=== PATIENT | male | born 1970 | race Hispanic/Latino ===

== ENCOUNTER → 2018-03-17 | Outpatient (CLI) | payer MEDICAID ==
[~2018-03-17] MED LIST: CEPH500B PO; LISI-613 PO; TYL3 PO
== END | disposition home or self-care (01) ==
LOC: RAH 10:14
PROVIDERS: ATTEND Urology
DX: N20.0 Calculus of kidney (principal); M47.815 Spondylosis without myelopathy or radiculopathy, thoracolumbar region
CPT/HCPCS: 74018; 76100

== ENCOUNTER 2018-03-19 08:29 | Day surgery (SDC) | payer MEDICAID ==
[2018-03-18 12:01] VITALS: BP 139/81
[2018-03-18 12:16] LABS: BASOPHILS % (AUTO) 0.5 % (0.0-5.0); EOSINOPHILS % (AUTO) 0.9 % (0.0-8.0); HEMATOCRIT 42.8 % (42-54); MEAN CORPUSCULAR HEMOGLOBIN 26.9 pg (27.0-33.0); MEAN CORPUSCULAR HGB CONC 32.6 g/dL (32.0-36.0); MEAN CORPUSCULAR VOLUME 82.5 fL (79-99); MONOCYTES % (AUTO) 8.6 % (3.0-13.0); PLATELET COUNT (AUTO) 474 K/uL (130-400); RED BLOOD CELL COUNT(AUTO) 5.19 MIL/uL (4.50-6.20); RED CELL DISTRIBUTION WIDTH 14.2 % (11.0-15.5); WHITE BLOOD COUNT (AUTO) 12.9 K/uL (4.8-10.8)
[2018-03-18 12:26] LABS: INR 0.97 (0.85-1.15); PROTHROMBIN TIME 10.2 SEC (9.6-11.6)
[2018-03-18 12:30] LABS: CREATININE 1.2 mg/dL (0.5-1.5); POTASSIUM 4.3 mmol/L (3.5-5.1)
--- NOTE | 2018-03-18 15:53 | NUR ---
ABNORMAL LABS CBC RESULTS FAXED OVER TO DR. DEL CASTILLO'S OFFICE. WAITING [employer] DEVELOPER BACK FOR ORDERS.
--- NOTE | 2018-03-18 16:45 | NUR ---
UPDATED H&P CALLED DR. DEL CASTILLO'S OFFICE FOR UPDATED H&P. STAFF STATED SHE WILL FAX NOW. CHANTALE ROLLINS NURSE TIRE SERVICE SUPERVISOR ALSO CALLED OFFICE FOR H&P.
--- NOTE | 2018-03-18 16:51 | NUR ---
ABNORMAL LABS CALL BACK FROM DR. DEL CASTILLO'S OFFICE RE FAXED CBC RESULT. NO FURTHER ORDERS GIVEN. OKAY TO PROCEED.
[~2018-03-19] VITALS: Ht 167.6 cm; Wt 67.3 kg
[~2018-03-19 08:29] MED LIST changes: -CEPH500B PO; -TYL3 PO
[2018-03-19 09:19] VITALS: BP 130/83
--- NOTE | 2018-03-19 09:30 | NUR ---
right flank nephrostomy tube with obscured dressing bandage loose, tubing taped, bag draining clear yellow urine to gravity
[2018-03-19] MEDS ORDERED: SODIUM CHLORIDE 0.9% 1000ML 1,000 ML IV ONE (10:22)
[2018-03-19 10:30] VITALS: BP 122/82
[2018-03-19] MEDS ORDERED: BUSP15TA3 PO (10:38)
[2018-03-19] MEDS ORDERED: IODIXANOL 320 MG/ML 100 ML VIAL ONE (11:14)
[2018-03-19] MEDS ORDERED: LIDOCAINE HCL 1% MDV 50ML VIAL ONE (11:14)
--- NOTE | 2018-03-19 11:15 | NUR ---
transported to laborer chemical processing via stretcher in stable condition by Kavya MORFIN
[2018-03-19 12:10] VITALS: BP 140/99
--- NOTE | 2018-03-19 12:10 | NUR ---
returned from clinical laboratory science professor via stretcher by Kavya MORFIN, right nephrostomy tube clamped by Dr Heredia in clinical laboratory science professor, opsite with 2x2 dressing intact, clean, dry
== END 2018-03-19 12:45 | disposition home or self-care (01) ==
LOC: DAH 08:29
PROVIDERS: ATTEND Urology
DX: N20.0 Calculus of kidney (principal); Z79.01 Long term (current) use of anticoagulants; Z79.899 Other long term (current) drug therapy; I82.90 Acute embolism and thrombosis of unspecified vein; I26.99 Other pulmonary embolism without acute cor pulmonale
CPT/HCPCS: 36415; 50431; 80048; 85025; 85610; 85730; J1644; J3490; J7030; Q9967